=== PATIENT | male | born 1990 | race Caucasian/White ===

== ENCOUNTER 2019-06-10 19:56 | Emergency (ER) | payer MEDICAID ==
[~2019-06-10] VITALS: Ht 177.8 cm; Wt 99.8 kg
[2019-06-10 20:14] VITALS: BP_SYST 122
--- NOTE | 2019-06-10 20:24 | NUR ---
Patient triaged and placed in waiting room. VSS and patient appears in no acute distress at this time. Accompanied by , awaiting available bed, and MD notified of need for MSE.
--- NOTE | 2019-06-10 20:27 | NUR ---
Patient called for room placement, patient not found in ED hallway, lobby, or ED entrance.
--- NOTE | 2019-06-10 20:32 | NUR ---
Patient called a second time. Patient not found in ED lobby, hallway, or ED entrance.
--- NOTE | 2019-06-10 20:37 | NUR ---
Patient called a third time. Patient not found in ED lobby, hallway, or ED entrance. Patient LWBS @ [id number]. MD Hanson aware.
== END 2019-06-10 20:37 | disposition left against medical advice (07) ==
LOC: SED 19:56
DX: R05 Cough (principal); R09.89 Other specified symptoms and signs involving the circulatory and respiratory systems; J02.9 Acute pharyngitis, unspecified; Z53.21 Procedure and treatment not carried out due to patient leaving prior to being seen by health care provider